=== PATIENT | male | born 1990 | race American Indian/Alaskan Native ===

== ENCOUNTER 2021-02-03 09:59 | Emergency (ER) | payer SELFPAY ==
[2021-02-04 03:39] VITALS: BP 130/74
--- NOTE | 2021-02-04 05:57 | Emergency Department Report ---
ED General Adult HPI - General Chief complaint: Earache Stated complaint: LEFT EAR INFECTION Source: patient Mode of arrival: Ambulatory Limitations: No Limitations - History of Present Illness Initial comments: Patient is a 30-year-old -[place] male with no past medical history presented to the ED with complaint of acute onset persistent left ear pain, and a sensation of muffling on the left ear due to cerumen impaction for the last 1 week, worse in the last 2 days. Patient also complains of mild dizziness and lightheadedness and feeling of imbalance. Patient denies fever, chills, nausea, vomiting, dizziness, syncope, chest pain, shortness of breath, fever and chills or cough, nasal and sinus congestion. MD Complaint: left ear cerumen impaction; lightheadedness -: Sudden, week(s) (1) Location: face (left ear) Radiation: non-radiation Severity scale (0 -10): 3 Quality: dull Consistency: intermittent Improves with: none Worsens with: none Associated Symptoms: denies other symptoms. denies: confusion, chest pain, diaphoresis, fever/chills, headaches, loss of appetite, malaise, nausea/vomiting, shortness of breath, syncope, weakness Treatments Prior to Arrival: none - Related Data Previous Rx's Medication Instructions Recorded Last Taken Type Amoxicillin/Potassium Clav 1 each PO Q12H #20 tablet 02/04/21 Unknown Rx [Augmentin 875-125 Tablet] Carbamide Peroxide 6.5% [Ear Wax 5 drops OT Q6H #1 bottle 02/04/21 Unknown Rx Drops] Ibuprofen [Motrin] 800 mg PO Q8HR PRN #20 tablet 02/04/21 Unknown Rx Meclizine [Antivert] 25 mg PO TID PRN #30 tablet 02/04/21 Unknown Rx ED Review of Systems ROS: Stated complaint: LEFT EAR INFECTION Other details as noted in HPI Constitutional: denies: chills, fever Eyes: denies: eye pain, eye discharge, vision change ENT: ear pain (Mild left ear pain with cerumen impaction). denies: throat pain Respiratory: denies: cough, shortness of breath, wheezing Cardiovascular: denies: chest pain, palpitations Endocrine: no symptoms reported Gastrointestinal: denies: abdominal pain, nausea, vomiting, diarrhea Genitourinary: denies: urgency, dysuria Musculoskeletal: denies: back pain, joint swelling, arthralgia Skin: denies: rash, lesions Neurological: other (Lightheadedness). denies: headache, weakness, paresthesias Psychiatric: denies: anxiety, depression Hematological/Lymphatic: denies: easy bleeding, easy bruising ED Past Medical Hx - Past Medical History Previous Medical History?: No - Surgical History Past Surgical History?: No - Medications Home Medications: Home Medications Medication Instructions Recorded Confirmed Last Taken Type Amoxicillin/Potassium Clav 1 each PO Q12H #20 tablet 02/04/21 Unknown Rx [Augmentin 875-125 Tablet] Carbamide Peroxide 6.5% [Ear Wax 5 drops OT Q6H #1 bottle 02/04/21 Unknown Rx Drops] Ibuprofen [Motrin] 800 mg PO Q8HR PRN #20 tablet 02/04/21 Unknown Rx Meclizine [Antivert] 25 mg PO TID PRN #30 tablet 02/04/21 Unknown Rx ED Physical Exam - General Limitations: No Limitations General appearance: alert, in no apparent distress - Head Head exam: Present: atraumatic, normocephalic, normal inspection - Eye Eye exam: Present: normal appearance, PERRL, EOMI Pupils: Present: normal accommodation - ENT ENT exam: Present: normal orophraynx, mucous membranes moist, TM's normal bilaterally, normal external ear exam - Neck Neck exam: Present: normal inspection, full ROM - Respiratory Respiratory exam: Present: normal lung sounds bilaterally. Absent: respiratory distress, wheezes, rales, stridor, chest wall tenderness, accessory muscle use, decreased breath sounds, prolonged expiratory - Cardiovascular Cardiovascular Exam: Present: regular rate, normal rhythm, normal heart sounds. Absent: systolic murmur, diastolic murmur, rubs, gallop - GI/Abdominal GI/Abdominal exam: Present: soft, normal bowel sounds. Absent: tenderness, guarding, rigid, hyperactive bowel sounds, hypoactive bowel sounds - Extremities Exam Extremities exam: Present: normal inspection, full ROM, normal capillary refill - Back Exam Back exam: Present: normal inspection, full ROM. Absent: tenderness, CVA tenderness (R), CVA tenderness (L), muscle spasm, paraspinal tenderness - Neurological Exam Neurological exam: Present: alert, oriented X3, CN II-XII intact, normal gait, reflexes normal - Psychiatric Psychiatric exam: Present: normal affect, normal mood - Skin Skin exam: Present: warm, dry, intact, normal color. Absent: rash ED Course Vital Signs 02/04/21 03:38 Temperature 97.8 F Pulse Rate 67 Respiratory 16 Rate Blood Pressure 130/74 [Left] O2 Sat by Pulse 100 Oximetry ED Medical Decision Making - Medical Decision Making This is a 30-year-old -[place] male with no past medical history presented to the ED with complaint of acute onset persistent left ear pain, and a sensation of muffling on the left ear due to cerumen impaction for the last 1 week, worse in the last 2 days. Patient also complains of mild dizziness and lightheadedness and feeling of imbalance. In the ED, patient is alert and oriented x3 and is not in any distress. Patient was discharged home on medications and advised to follow-up with his primary care physician in 7 to 10 days for reevaluation. Patient advised return to the ED immediately if symptoms get worse. - Differential Diagnosis Otitis media; otitis externa; cerumen impaction; vertigo Critical care attestation.: If time is entered above; I have spent that time in minutes in the direct care of this critically ill patient, excluding procedure time. ED Disposition Clinical Impression: Acute pain of left ear, Impacted cerumen of left ear, Acute otitis media with effusion Disposition: 01 HOME / SELF CARE / HOMELESS Is pt being admited?: No Does the pt Need Aspirin: No Condition: Stable Instructions: Otitis Media, Adult, [id number], Earwax Buildup, Adult, Ear Drops, Adult, [id number] Additional Instructions: Apply the medication to the affected ear, take medication with food, drink plenty of fluids and follow-up with your primary care physician in 7 to 10 days for reevaluation. Return to the ED immediately if symptoms get worse. Prescriptions: Meclizine [Antivert] 25 mg PO TID PRN #30 tablet PRN Reason: Vertigo Amoxicillin/Potassium Clav [Augmentin 875-125 Tablet] 1 each PO Q12H #20 tablet Carbamide Peroxide 6.5% [Ear Wax Drops] 5 drops OT Q6H #1 bottle Ibuprofen [Motrin] 800 mg PO Q8HR PRN #20 tablet PRN Reason: Pain , Severe (7-10) Referrals: [facility] [Provider Group] - 7-10 days Time of Disposition: 05:54 Print Language: OCCITAN
== END 2021-02-04 06:10 | disposition home or self-care (01) ==
LOC: ED 09:59
DX: H61.22 Impacted cerumen, left ear (principal); H65.192 Other acute nonsuppurative otitis media, left ear; Z79.899 Other long term (current) drug therapy
CPT/HCPCS: 99282

== ENCOUNTER 2021-02-13 09:11 | Emergency (ER) | payer SELFPAY ==
[2021-02-13 09:18] VITALS: BP 153/92
[2021-02-13] MEDS ORDERED: DOCUSATE SODIUM 100 MG/10 ML ORAL LIQD PO ONE (09:30)
--- NOTE | 2021-02-13 09:32 | Emergency Department Report ---
ED ENT HPI - General Chief complaint: Earache Stated complaint: EAR PAIN Time Seen by Provider: 02/13/21 09:27 Source: patient Mode of arrival: Ambulatory Limitations: No Limitations - History of Present Illness Initial comments: 30 yo comes to ER with left ear fullness. Has hx of the same. no fever/no chills ambulatory and non ill appearing -: Gradual, days(s) Location: R ear Severity: mild Consistency: constant Improves with: pressure Worsens with: none - Related Data Previous Rx's Medication Instructions Recorded Last Taken Type Amoxicillin/Potassium Clav 1 each PO Q12H #20 tablet 02/04/21 Unknown Rx [Augmentin 875-125 Tablet] Carbamide Peroxide 6.5% [Ear Wax 5 drops OT Q6H #1 bottle 02/04/21 Unknown Rx Drops] Ibuprofen [Motrin] 800 mg PO Q8HR PRN #20 tablet 02/04/21 Unknown Rx Meclizine [Antivert] 25 mg PO TID PRN #30 tablet 02/04/21 Unknown Rx Allergies Allergy/AdvReac Type Severity Reaction Status Date / Time No Known Allergies Allergy Unverified 02/13/21 09:12 ED Dental HPI - General Chief complaint: Earache Stated complaint: EAR PAIN Time Seen by Provider: 02/13/21 09:27 Source: patient Mode of arrival: Ambulatory Limitations: No Limitations - Related Data Previous Rx's Medication Instructions Recorded Last Taken Type Amoxicillin/Potassium Clav 1 each PO Q12H #20 tablet 02/04/21 Unknown Rx [Augmentin 875-125 Tablet] Carbamide Peroxide 6.5% [Ear Wax 5 drops OT Q6H #1 bottle 02/04/21 Unknown Rx Drops] Ibuprofen [Motrin] 800 mg PO Q8HR PRN #20 tablet 02/04/21 Unknown Rx Meclizine [Antivert] 25 mg PO TID PRN #30 tablet 02/04/21 Unknown Rx Allergies Allergy/AdvReac Type Severity Reaction Status Date / Time No Known Allergies Allergy Unverified 02/13/21 09:12 ED Review of Systems ROS: Stated complaint: EAR PAIN Other details as noted in HPI Comment: All other systems reviewed and negative ED Past Medical Hx - Past Medical History Previous Medical History?: No - Surgical History Past Surgical History?: No - Family History Family history: no significant - Social History Smoking Status: Never Smoker Substance Use Type: None - Medications Home Medications: Home Medications Medication Instructions Recorded Confirmed Last Taken Type Amoxicillin/Potassium Clav 1 each PO Q12H #20 tablet 02/04/21 Unknown Rx [Augmentin 875-125 Tablet] Carbamide Peroxide 6.5% [Ear Wax 5 drops OT Q6H #1 bottle 02/04/21 Unknown Rx Drops] Ibuprofen [Motrin] 800 mg PO Q8HR PRN #20 tablet 02/04/21 Unknown Rx Meclizine [Antivert] 25 mg PO TID PRN #30 tablet 02/04/21 Unknown Rx ED Physical Exam - General Limitations: No Limitations General appearance: alert, in no apparent distress - Head Head exam: Present: atraumatic, normocephalic - Eye Eye exam: Present: normal appearance - ENT ENT exam: Present: mucous membranes moist - Expanded ENT Exam Expanded TM/Canal exam: Canal Discharge: Right TM, Left TM (wax) - Neck Neck exam: Present: normal inspection - Respiratory Respiratory exam: Present: normal lung sounds bilaterally. Absent: respiratory distress - Cardiovascular Cardiovascular Exam: Present: regular rate, normal rhythm. Absent: systolic mur mur, diastolic murmur, rubs, gallop - GI/Abdominal GI/Abdominal exam: Present: soft, normal bowel sounds - Rectal Rectal exam: Present: deferred - Extremities Exam Extremities exam: Present: normal inspection - Back Exam Back exam: Present: normal inspection - Neurological Exam Neurological exam: Present: alert, oriented X3 - Psychiatric Psychiatric exam: Present: normal affect, normal mood - Skin Skin exam: Present: warm, dry, intact, normal color. Absent: rash ED Course Vital Signs 02/13/21 09:15 Temperature 97.6 F Pulse Rate 73 Respiratory 20 Rate Blood Pressure 153/92 O2 Sat by Pulse 97 Oximetry ED Medical Decision Making - Medical Decision Making Vital Signs 02/13/21 09:15 Temperature 97.6 F Pulse Rate 73 Respiratory 20 Rate Blood Pressure 153/92 O2 Sat by Pulse 97 Oximetry ears irrigated with colace/saline- with removal of wax dc home with dc plan of care including follow up and otc symptom management. pt verbalizes understanding of plan of care. - Differential Diagnosis om/oe/fb ear/cerumen Critical care attestation.: If time is entered above; I have spent that time in minutes in the direct care of this critically ill patient, excluding procedure time. ED Disposition Clinical Impression: Excessive ear wax Qualifiers: Laterality: bilateral Qualified Code(s): H61.23 - Impacted cerumen, bilateral Disposition: 01 HOME / SELF CARE / HOMELESS Is pt being admited?: No Does the pt Need Aspirin: No Condition: Stable Instructions: Earwax Buildup, Adult Additional Instructions: CERUMENEX EACH NIGHT WITH COTTON BALL - ALLOW TO DWELL OVERNIGHT- THIS WILL PREVENT FURTHER BUILD UP REFERRAL TO PCP AND ENT BELOW Referrals: SANDHYA CROCKETT MD [Staff Physician] - 3-5 Days CAILIN NUNES MD [Staff Physician] - 3-5 Days Forms: Work/School Release Form(ED) Time of Disposition: 09:38
== END 2021-02-13 11:07 | disposition home or self-care (01) ==
LOC: ED 09:11
DX: H61.23 Impacted cerumen, bilateral (principal)
CPT/HCPCS: 99282